=== PATIENT | female | born 1980 | race Caucasian/White ===

== ENCOUNTER 2020-04-14 01:41 | Emergency (ER) | payer MEDICAID ==
[~2020-04-14] VITALS: Ht 162.6 cm; Wt 59.9 kg
[2020-04-14 01:51] VITALS: Ht 162.6 cm; Wt 59.9 kg
[2020-04-14 02:24] LABS: BASOPHIL % 1.2 % (0-2); RED CELL DISTRIBUTION WIDTH 13.6 % (11.5-14.5)
[2020-04-14 02:27] LABS: CALCIUM 8.9 mg/dL (8.5-10.1); CARBON DIOXIDE 25.2 mmol/L (21-32); CHLORIDE SERUM 101 mmol/L (98-107); CREATININE SERUM 0.9 mg/dL (0.6-1.0); GFR1 > 60 mL/min; GLUCOSE SERUM 105 mg/dL (74-106); POTASSIUM SERUM 3.2 mmol/L (3.5-5.1); SODIUM SERUM 135 mmol/L (136-145)
[2020-04-14 02:29] LABS: PLATELET COUNT 644 x10^3mcL (130-400)
[2020-04-14 02:31] LABS: ALBUMIN 3.6 g/dL (3.4-5.0); ALKALINE PHOSPHATASE 76 U/L (46-116); ALT/SGPT 18 U/L (14-59); AST/SGOT 14 U/L (15-37); BILIRUBIN TOTAL 0.46 mg/dL (0.20-1.00); LIPASE 130 IU/L (73-393)
[2020-04-14 05:24] VITALS: BP 112/68
== END 2020-04-14 05:15 | disposition home or self-care (01) ==
LOC: ED 01:41
PROVIDERS: Emergency Medicine
DX: K52.9 Noninfective gastroenteritis and colitis, unspecified (principal)